=== PATIENT | female | born 1960 | race Caucasian/White ===

== ENCOUNTER 2019-06-11 09:13 | Outpatient (CLI) | payer BC, SELFPAY ==
--- NOTE | ~2019-06-11 | MM_ITS ---
EXAMINATION: MM screening [facility] BI w dennise HISTORY: Screening mammogram TECHNIQUE: Craniocaudal and mediolateral oblique 3-D tomosynthesis images were obtained and synthetic 2-D images were generated. CAD analysis was submitted and interpreted. COMPARISON: 02/21/2018, 05/23/2016, 05/14/2014, 01/05/2013 BREAST PARENCHYMAL COMPOSITION: The breasts are heterogeneously dense, which may obscure small masses . FINDINGS: A stable mass in the outer right breast is considered benign given the lack of interval kimberli nge. There is no evidence of suspicious mass, calcification, or architectural distortion to suggest m alignancy in either breast. There has been no suspicious interval change. IMPRESSION: 1. No mammographic evidence of malignancy. 2. Recommend routine screening mammography in one year. BI-RADS Category 2: Benign finding(s). Reviewed, dictated and finalized at location A. IFIED PESTICIDE APPLICATOR
--- NOTE | ~2019-06-11 | DEXA_ITS ---
Bone Density Report Name: Jessica Crawford Age: 58 Sex: Female Ethnicity: White Date of : 1960 Indication: postmenopausal; Referring Provider: Angel Luis Gaxiola Study: Bone densitometry was performed. Exam Date: June 11, 2019 Accession number: [id number] Bone Density: Region BMD T-score Z-score Classification AP Spine (L1-L4) 1.367 2.9 4.2 Normal Femoral Neck (Left) 0.855 0.1 1.2 Normal Total Hip (Left) 1.096 1.3 2.1 Normal Total Hip Bilateral Avg 1.087 1.2 2.0 Normal Femoral Neck (Right) 0.855 0.1 1.2 Normal Total Hip (Right) 1.076 1.1 1.9 Normal World Health Organization criteria for BMD impression classify patients as: Normal (T-score at or above -1.0), Osteopenia (T-score between -1.0 and -2.5), or Osteoporosis (T-score at or below -2.5). 10-year Fracture Risk: FRAX not reported because: All T-scores for Spine Total, Hip Total, Femoral Neck at or above -1.0 Clinical Information Provided by Patient: Patient maximum height was 62 Menopause Age: 57 Drinks caffeinated beverages Onset of menses at age 12 Number of children 2 Impression: The patient has normal bone mass. Discussion: BONE DENSITY IS ABOVE THE MINIMUM DESIRABLE LEVEL AT ALL SKELETAL SITES TESTED. This patient?s bone mineral density is above the minimum desirable level (T-score -1.0 or better) at all sites measured. The patient should follow a healthful lifestyle (good nutrition with adequate calcium and vitamin D, and appropriate weight-bearing exercise). Follow-Up: Consider repeating this study in 5 years or sooner if there is some new clinical indication. Reported by: [facility] on 06/11/2019 9:53:00 AM. Reviewed, dictated and finalized at location AJesus Manuel DALY
== END 2019-06-11 09:14 | disposition home or self-care (01) ==
LOC: ANHIMG 09:16
PROVIDERS: PCP Family Medicine; Visit Provider Physician Assistant
DX: Z12.31 Encounter for screening mammogram for malignant neoplasm of breast (principal); Z78.0 Asymptomatic menopausal state
CPT/HCPCS: 77063; 77067; 77080

== ENCOUNTER → 2020-03-04 11:26 | Outpatient (CLI) | payer BC, SELFPAY ==
--- NOTE | ~2020-03-04 | US_ITS ---
EXAMINATION: US abdomen limited EXAM DATE: 03/04/2020 11:43 INDICATION: R17 - Unspecified jaundice TECHNIQUE: Multiple grayscale and Doppler images of the abdomen right upper quadrant were obtained (b y a technologist who performed the scan) and subsequently reviewed. There is no prior study for nini whitt. FINDINGS: The pancreatic head and body are normal in appearance. The pancreatic tail is not visualized. Mildl y echogenic liver parenchyma, hepatic steatosis. There is a right liver lobe cyst at the dome measur ing 1.4 cm. There is no evidence of intrahepatic biliary duct dilation. Portal venous flow was seen in the hepatopedal, normal direction and has normal Doppler waveform. No right-sided hydronephrosis . Common bile duct measures 5 mm, which is normal. The gallbladder wall is normal in thickness, with ex pected amount of distention. No sonographic evidence of pericholecystic fluid. There is no cholelit hiases. Technologist performing exam reports patient did not demonstrate sonographic Stone's sign. Please note that this sign is less reliable in patients who have received pain medication. IMPRESSION: 1. Hepatic steatosis. Reviewed, dictated and finalized at location B. E GROUP MANAGER IMPRESSION: 1. Hepatic steatosis.
== END ==
PROVIDERS: Visit Provider Physician Assistant
DX: K76.0 Fatty (change of) liver, not elsewhere classified (principal)
CPT/HCPCS: 76705

== ENCOUNTER 2020-12-27 08:59 | Outpatient (CLI) | payer BC, SELFPAY ==
--- NOTE | ~2020-12-27 | MM_ITS ---
EXAMINATION: MM screening [facility] BI w dennise HISTORY: Screening mammogram TECHNIQUE: Craniocaudal and mediolateral oblique 3-D tomosynthesis images were obtained and synthetic 2-D images were generated. CAD analysis was submitted and interpreted. COMPARISON: 06/11/2019, 02/21/2018, 05/23/2016 bilateral digital screening mammogram examinations BREAST PARENCHYMAL COMPOSITION: The breasts are heterogeneously dense, which may obscure small masses . FINDINGS: Stable circumscribed approximately 9.5 mm mass in the posterior outer mid to upper right br east, not significantly changed since 2018. There is no evidence of suspicious mass, calcification, o r architectural distortion to suggest malignancy in either breast. There has been no suspicious inter nitish change. IMPRESSION: 1. No mammographic evidence of malignancy. 2. Recommend routine screening mammography in one year. BI-RADS Category 2: Benign finding(s). Reviewed, dictated and finalized at location A.
== END 2020-12-27 09:00 | disposition home or self-care (01) ==
LOC: ANHIMG 09:01
PROVIDERS: PCP Family Medicine; Visit Provider Family Medicine
DX: Z12.31 Encounter for screening mammogram for malignant neoplasm of breast (principal)
CPT/HCPCS: 77063; 77067

== ENCOUNTER 2022-05-01 15:35 | Outpatient (CLI) | payer BC, SELFPAY ==
--- NOTE | ~2022-05-01 | MM_ITS ---
EXAMINATION: MM screening [facility] w dennise HISTORY: Screening mammogram TECHNIQUE: Craniocaudal and mediolateral oblique 3-D tomosynthesis images were obtained and synthetic 2-D images were generated. CAD analysis was submitted and interpreted. COMPARISON: 12/27/2020, 06/11/2019, 02/21/2018 bilateral screening mammogram examinations BREAST PARENCHYMAL COMPOSITION: The breasts are heterogeneously dense, which may obscure small masses . FINDINGS: Stable circumscribed approximately 8.5 mm low-density opacity in the posterior mid to lower outer right breast. There is no evidence of suspicious mass, calcification, or architectural distort ion to suggest malignancy in either breast. There has been no suspicious interval change. IMPRESSION: 1. No mammographic evidence of malignancy. 2. Recommend routine screening mammography in one year. BI-RADS Category 2: Benign finding(s). Reviewed, dictated and finalized at location A. CLEANING SUPERVISOR
== END 2022-05-01 15:36 | disposition home or self-care (01) ==
PROVIDERS: PCP Emergency Medicine; Visit Provider Physician Assistant
DX: Z12.31 Encounter for screening mammogram for malignant neoplasm of breast (principal)
CPT/HCPCS: 77063; 77067

== ENCOUNTER 2022-05-28 14:33 | Outpatient (CLI) | payer BC, SELFPAY ==
--- NOTE | ~2022-05-28 | XR_ITS ---
EXAMINATION: HAND-KIKI ARTHRITIS 3+VIEWS DATE: 05/28/2022 14:53 INDICATION: Osteoarthritis at the bilateral hands TECHNIQUE: Posteroanterior, lateral, and oblique views of the left and of the right hands as well as a ballcatchers view of both hands were obtained. COMPARISON: None. FINDINGS: Normal alignment at the bilateral hands and wrists. No fracture. Polyarticular osteoarthritis charact erized by nonuniform joint space narrowing and small marginal osteophytes. This is severe with centra l erosions with gullwing configuration at the right second distal interphalangeal and left third and fifth distal interphalangeal joints consistent with erosive osteoarthritis. Additional osteoarthritis , moderate severity at the right first interphalangeal and remaining distal interphalangeal joints an d mild at the bilateral triscaphe, first carpometacarpal and at the remaining bilateral interphalange al joints. No other erosions to suggest rheumatoid or other inflammatory arthritis. IMPRESSION: 1. 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 Reviewed, dictated and finalized at location A. OUT WORKER IMPRESSION: 1. 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
== END 2022-05-28 14:34 | disposition home or self-care (01) ==
LOC: ANHIMG 14:36
PROVIDERS: PCP Emergency Medicine; Visit Provider Internal Medicine
DX: M19.90 Unspecified osteoarthritis, unspecified site (principal); M35.9 Systemic involvement of connective tissue, unspecified; R13.10 Dysphagia, unspecified; R76.8 Other specified abnormal immunological findings in serum
CPT/HCPCS: 73130

== ENCOUNTER 2023-07-31 08:20 | Outpatient (CLI) | payer BC, SELFPAY ==
--- NOTE | ~2023-07-31 | MM_ITS ---
EXAMINATION: MM screening [facility] BI w dennise HISTORY: Screening mammogram TECHNIQUE: Craniocaudal and mediolateral oblique 3-D tomosynthesis images were obtained and synthetic 2-D images were generated. CAD analysis was submitted and interpreted. COMPARISON: 05/01/2022, 12/27/2020 bilateral screening mammogram examinations BREAST PARENCHYMAL COMPOSITION: The breasts are heterogeneously dense, which may obscure small masses . FINDINGS: There is no evidence of suspicious mass, calcification, or architectural distortion to sugg est malignancy in either breast. There has been no suspicious interval change. IMPRESSION: 1. No mammographic evidence of malignancy. 2. Recommend routine screening mammography in one year. BI-RADS Category 1: Negative Reviewed, dictated and finalized at location A.
== END 2023-07-31 08:21 | disposition home or self-care (01) ==
PROVIDERS: PCP Emergency Medicine; Visit Provider Emergency Medicine
DX: Z12.31 Encounter for screening mammogram for malignant neoplasm of breast (principal)
CPT/HCPCS: 77063; 77067

== ENCOUNTER 2023-09-30 01:09 | Day surgery (SDC) | payer BC, SELFPAY ==
[2023-06-24 14:42] VITALS: BMI 30.1
[2023-09-19 12:11] VITALS: BMI 31.2
[2023-09-30 07:15] VITALS: BP 127/72; PULSE 59; RESP 16; TEMP 36.2; O2SAT 99; BMI 31.3
[2023-09-30] MEDS: LACTATED RINGERS 1,000 ML 150 ML IV CONT (07:33)
--- NOTE | 2023-09-30 07:58 | P.PNAN_ITS ---
Anes - Initial Pre Proc Eval Procedure: Operation Date: 09/30/23 08:30 Proposed Procedures p Screening Colonoscopy - Manjinder Hoff MD Date/Time: 09/30/23 07:58 Surgeon: Manjinder Hoff MD Pre Op Diagnosis: neoplasm screening Patient Data Age: 62 Gender: F Height: 1.57 m Weight: 77.6 kg Last Vital Signs Temp 97.2 F L 09/30/23 07:15 Pulse 59 L 09/30/23 07:15 Resp 16 09/30/23 07:15 BP 127/72 09/30/23 07:15 Pulse Ox 99 09/30/23 07:15 O2 Del Method Room Air 09/30/23 07:15 Allergies Allergy/AdvReac Type Severity Reaction Status Date / Time No Known Allergies Allergy Unknown Verified 09/30/23 07:22 Home Medications Medication Instructions Recorded Confirmed Type valacyclovir 1 gram tablet 1,000 mg PO Q12H #4 tabs 05/07/22 09/30/23 Rx bisoprolol 5 1 tablet PO DAILY #90 tabs 04/08/23 09/30/23 Rx mg-hydrochlorothiazide 6.25 mg tablet lisinopril 20 mg tablet 20 mg PO DAILY #90 tabs 05/21/23 09/30/23 Rx atorvastatin 20 mg tablet See Rx Instructions .Route 08/19/23 09/30/23 Rx .COMPLEX #90 tabs folic acid 1 mg tablet 1 mg PO DAILY 09/17/23 09/30/23 History meloxicam 15 mg tablet See Rx Instructions .Route .COMPLEX 09/17/23 09/30/23 History methotrexate sodium 2.5 mg tablet 12.5 mg PO WEEKLY 09/17/23 09/30/23 History Patient hx anesthesia problems: none Family hx anesthesia problems: none Results Review: All pre-operative results and documents have been reviewed as part of the pre- operative evaluation. 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 Social History Social History Smoking status: Never smoker Alcohol intake: current Drinks per week: 3 Substance use: never Substance use type: does not use Lack of Transportation: No Lack of Food: Sometimes True Current Housing: I Have Housing Concerned About Future Housing: No Difficulty Paying Gas/Electric Bills: No Difficulty Paying for Meds: No Currently Unemployed: No Education: Bachelor's Degree Difficulty w/ Childcare or Family Care: No Living arrangements: with family Spiritual care concerns: No Anes - Eval Final PreProcedure Day of Procedure 09/30/23 07:58 Patient weight: obese Heart: regular rate and rhythm Lungs: clear to auscultation Airway: Mallampati scale class II Neurological: alert and oriented Last oral intake: >/= 8 hours ASA classification: II Emergent: no Anesthetic plan: proceed Anesthesia type and monitoring: general GIVS and standard monitoring Results Review: All pre-operative results and documents have been reviewed as part of the pre- operative evaluation. Informed Consent: The patient's anesthetic plan and its attendant risks and benefits were discussed with the patient/family/POA. Questions were solicited and answers prov ided to the satisfaction of the patient/family/POA.
--- NOTE | 2023-09-30 08:17 | PM.HPGS ---
History of Present Illness History of Present Illness Consent: Risks, benefits, and alternatives have been discussed and questions answered. Patient agrees to proceed with procedure. 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 antibody positive Undifferentiated connective tissue disease Social History Social History Smoking status: Never smoker Alcohol intake: current Drinks per week: 3 Substance use: never Substance use type: does not use Lack of Transportation: No Lack of Food: Sometimes True Current Housing: I Have Housing Concerned About Future Housing: No Difficulty Paying Gas/Electric Bills: No Difficulty Paying for Meds: No Currently Unemployed: No Education: Bachelor's Degree Difficulty w/ Childcare or Family Care: No Living arrangements: with family Spiritual care concerns: No Meds Home Medications and Allergies Home Medications Medication Instructions Recorded Confirmed Type valacyclovir 1 gram tablet 1,000 mg PO Q12H #4 tabs 05/07/22 09/30/23 Rx bisoprolol 5 1 tablet PO DAILY #90 tabs 04/08/23 09/30/23 Rx mg-hydrochlorothiazide 6.25 mg tablet lisinopril 20 mg tablet 20 mg PO DAILY #90 tabs 05/21/23 09/30/23 Rx atorvastatin 20 mg tablet See Rx Instructions .Route 08/19/23 09/30/23 Rx .COMPLEX #90 tabs folic acid 1 mg tablet 1 mg PO DAILY 09/17/23 09/30/23 History meloxicam 15 mg tablet See Rx Instructions .Route .COMPLEX 09/17/23 09/30/23 History methotrexate sodium 2.5 mg tablet 12.5 mg PO WEEKLY 09/17/23 09/30/23 History Allergies Allergy/AdvReac Type Severity Reaction Status Date / Time No Known Allergies Allergy Unknown Verified 09/30/23 07:22 Vital Signs Vital Signs - 24 hr 09/30/23 07:15 Temperature 97.2 F L Pulse Rate 59 L Respiratory Rate 16 Blood Pressure 127/72 Pulse Oximetry 99 Oxygen Delivery Room Air Exam Const: General: comfortable and no acute distress HENMT: Face/Nose/Sinus: Normal nares present Eyes: General: appearance normal, both eyes and all related structures Neck: Neck: no JVD Resp: Auscultation: clear to auscultation bilaterally Cardio: Rate: regular rate Rhythm: regular rhythm GI: Inspection: non-distended GI Palp: Yes Soft to palpation Skin: General skin exam: normal color Neuro: General: gait normal Speech: normal speech Extrem: General: normal to inspection Psych: Mental Status: mental status grossly normal Assessment and Plan Assessment and plan (1) Colon cancer screening: Code(s): Z12.11 - Encounter for screening for malignant neoplasm of colon Status: Acute Assessment and Plan: colonoscopy
[2023-09-30 08:39] VITALS: BP 95/58; PULSE 58; RESP 17; O2SAT 97
[2023-09-30 08:49] VITALS: BP 104/64; PULSE 55; RESP 16; O2SAT 100
[2023-09-30 08:59] VITALS: BP 113/66; PULSE 56; RESP 18; O2SAT 100
== END 2023-09-30 09:05 | disposition home or self-care (01) ==
PROVIDERS: PCP Emergency Medicine; Visit Provider Internal Medicine Gastroenterology
PROC: 0DJD8ZZ Inspection of Lower Intestinal Tract, Via Natural or Artificial Opening Endoscopic (ICD-10-PCS; CPT 45378; principal; 2023-09-30 08:30)
DX: Z12.11 Encounter for screening for malignant neoplasm of colon (principal); K57.30 Diverticulosis of large intestine without perforation or abscess without bleeding; K64.8 Other hemorrhoids; E66.9 Obesity, unspecified; Z68.31 Body mass index [BMI] 31.0-31.9, adult
CPT/HCPCS: 45378; J2704; J7120

== ENCOUNTER 2024-08-18 10:18 | Outpatient (CLI) | payer BC, SELFPAY ==
--- NOTE | ~2024-08-18 | MM_ITS ---
EXAMINATION: MM screening lauren BI w dennise HISTORY: Screening mammogram TECHNIQUE: Craniocaudal and mediolateral oblique 3-D tomosynthesis images were obtained and synthetic 2-D images were generated. CAD analysis was submitted and interpreted. COMPARISON: 07/31/2023, 05/01/2022, 12/27/2020 BREAST PARENCHYMAL COMPOSITION:Dense: The breasts are heterogeneously dense, which may obscure small masses. FINDINGS: No suspicious mass, calcification, or architectural distortion are identified in either guillermo ast to suggest malignancy. There has been no suspicious interval change. IMPRESSION: No mammographic evidence of malignancy. Recommend routine screening mammography in one year. BI-RADS Category 1: Negative Reviewed, dictated and finalized at location .
--- OUTSIDE RECORDS SUMMARY | 2024-08-18 11:29 | XMS_ITS | Encounter Summary ---
Author Organization [facility] Healthcare Address [address] [place] [address] Care Team Providers Care Creative Services Manager Name Role Phone Brittny Khan NP Primary Care Provider [phone] Reason for Visit * Cardiology (Routine) - Closed Specialty Diagnoses / Procedures Referred By Contac t Referred To Contact Diagnoses Atrial fibrillation, unspecified type (HCC) Procedures Transthoracic Echo (TTE) Complete W Doppler/CF Elsa Hall MD [address] [address] Phone: tel: fax: [facility] [address] [place] [phone] Phone: tel: fax: Referral ID Status Reason Start Date Expiration Date Visits Re quested Visits Authorized [id number] Closed 08/11/2024 10/09/2024 1 1 Encounter Details Date Type Department Care Team (Latest Contact Info) Description 08/17/2024 8:15 AM CDT Ancillary Procedure [facility] [address] [place] [phone] Atrial fibrillation, unspecified type (HCC) Social History Tobacco Use Types Packs/Day Years Used Date Smoking Tobacco: Never Comments Unknown Sex and Gender Information Value Date Recorded Sex Assigned at Not on file Legal Sex Female 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 Gender Identity Female 07/06/2024 9:06 AM CDT Sexual Orientation Not on file documented as of this encounter Plan of Treatment Not on file documented as of this encounter Procedures Procedure Name Priority Date/Time Associated Diagnosis Comments TRANSTHORACIC ECHO (TTE) COMPLETE W DOPPLER/CF WO CONTRAST Routine 08/17/2024 8:47 AM CDT Atrial fibrillation, unspecified type (HCC) documented in this encounter Results * TRANSTHORACIC ECHO (TTE) COMPLETE W DOPPLER/CF WO CONTRAST (08/17/2024 8:47 AM CDT) LV EF 35 % CONS SCIMAGE Anatomical Region Laterality Modality Ultrasound 08/17/2024 8:28 AM CDT Narrative 08/17/2024 9:27 AM CDT [facility] [address], [address], [place] [address] P:[phone] P:[phone] Echocardiographic Report Patient Name: JESSICA ESCALANTE : 1960 Study Date: 08/17/2024 8:28:41 AM Gender: F Tech: Location: ID Ref Provider: ELSA HALL Height(Cm): 157 BSA: 1.87 Weight(Kg): 79.8 Heart Rate: 126 BP: 112 / 80 Quality: Good Order Provider: ELSA HALL PROCEDURES: Echocardiographic Report: Transthoracic echocardiogram with complete 2D, M-Mode, and color Doppler examination. With Strain Analysis. INDICATIONS: Atrial Fibrillation. MEASUREMENTS: 2D/MM Value Range Doppler Value Range EF Mod BP 43 % [ 54 - 74 ] AV Mean PG 3 mmHg Estimated EF 35 % AV Peak Brian 1.14 m/s [ 1.00 - 1.70 ] LVIDd 2D 5.13 cm [ 3.80 - 5.20 ] AV Peak PG 5 mmHg LVIDd MM 4.38 cm [ 3.80 - 5.20 ] AV VTI 19.98 cm LVIDs 2D 3.43 cm [ 2.20 - 3.50 ] LVOT Peak Brian 0.76 m/s [ 0.70 - 1.10 ] LVIDs MM 3.11 cm [ 2.20 - 3.50 ] LVOT VTI 15.92 cm LVPWd MM 1.04 cm [ 0.60 - 0.90 ] MV E Peak Brian 1.11 m/s [ 0.60 - 1.30 ] IVSd 2D 0.70 cm [ 0.60 - 0.90 ] MV Decel Time 165 msec [ 104 - 258 ] IVSd MM 1.04 cm [ 0.60 - 0.90 ] PV Peak Brian 0.66 m/s [ 0.40 - 0.80 ] LA Dimension MM 3.66 cm [ 2.70 - 3.80 ] TR Peak Brian 2.62 m/s [ 1.00 - 2.80 ] AoR Diam MM 3.52 cm [ 2.70 - 3.70 ] TR Peak PG 27 mmHg LA Volume Index 54 cc/m2 [ 16 - 34 ] RVSP 35.00 mmHg [ 10.00 - 36.00 ] ACS MM 1.87 cm Lateral E` 0.11 m/s [ 0.10 - 0.15 ] E` 0.08 m/s E/E` 10 2D/MM Value Range Doppler Value Range - FINDINGS: Interpretation Site: Exam was interpreted at [facility]. Left Ventricle: Normal left ventricular size. Normal left ventricular wall thickness. Moderate global left ventricular systolic dysfunction. Diastolic dysfunction is present. Ejection fraction is measured at 43 %. Ejection Fraction is visually estimated to be 35 %. Global Longitudinal Strain is -10 %. Right Ventricle: Normal right ventricular size. Normal right ventricular systolic function. Left Atrium: There is moderate enlargement of left atrium. Right Atrium: There is mild enlargement of right atrium. Atrial Septum: Normal atrial septum. Mitral Valve: Normal appearance of the mitral valve. Mild mitral valve regurgitation. There is no hemodynamically significant mitral stenosis by Doppler. Aortic Valve: No evidence of hemodynamically significant aortic stenosis by Doppler. Aortic cusps appear mildly sclerotic. Trileaflet aortic valve. Mild aortic valve regurgitation. Tricuspid Valve: Normal appearance of the tricuspid valve. Estimated peak RVSP is 35 mmHg. Mild tricuspid regurgitation. Pulmonic Valve: Normal appearance of the pulmonic valve. Mild pulmonic regurgitation. Pericardium: Normal pericardium with no significant pericardial effusion. Aorta: Sinus of Valsalva is mildly dilated. Sinus of Valsalva 3.9 cm. IVC: Normal size and normal respiratory collapse consistent with normal right atrial pressure (<5 mmHg). Pulmonary Artery: Normal pulmonary artery size. CONCLUSIONS: Normal left ventricular size. Normal left ventricular wall thickness. Moderate global left ventricular systolic dysfunction. Diastolic dysfunction is present. Ejection fraction is measured at 43 %. Ejection Fraction is visually estimated to be 35 %. Global Longitudinal Strain is -10 %. There is moderate enlargement of left atrium. There is mild enlargement of right atrium. No evidence of hemodynamically significant aortic stenosis by Doppler. Aortic cusps appear mildly sclerotic. Trileaflet aortic valve. Mild aortic valve regurgitation. Estimated peak RVSP is 35 mmHg. Mild tricuspid regurgitation. Mild pulmonic regurgitation. Atrial fibrillation. Electronically Signed By: Dr. Caleb Hill [facility] 08/17/2024 9:26:47 AM CDT Procedure Note Caleb Hill MD - 08/17/2024 [facility] [address] [address], [address], [place] [address] P:[phone] P:[phone] Echocardiographic Report Patient Name: JESSICA ESCALANTE : 1960 Study Date: 08/17/2024 8:28:41 AM Gender: F Tech: Location: [facility] Provider: ELSA HALL Height(Cm): 157 BSA: 1.87 Weight(Kg): 79.8 Heart Rate: 126 BP: 112 / 80 Quality: Good Order Provider: ELSA HALL PROCEDURES: Echocardiographic Report: Transthoracic echocardiogram with complete 2D, M-Mode, and color Dopplerexamination. With Strain Analysis. INDICATIONS: Atrial Fibrillation. MEASUREMENTS: 2D/MM Value Range Doppler ValueRange EF Mod BP 43 % [ 54 - 74 ] AV Mean PG 3mmHg Estimated EF 35 % AV Peak Brian 1.14m/s [ 1.00 - 1.70 ] LVIDd 2D 5.13 cm [ 3.80 - 5.20 ] AV Peak PG 5mmHg LVIDd MM 4.38 cm [ 3.80 - 5.20 ] AV VTI 19.98cm LVIDs 2D 3.43 cm [ 2.20 - 3.50 ] LVOT Peak Brian 0.76m/s [ 0.70 - 1.10 ] LVIDs MM 3.11 cm [ 2.20 - 3.50 ] LVOT VTI 15.92cm LVPWd MM 1.04 cm [ 0.60 - 0.90 ] MV E Peak Brian 1.11m/s [ 0.60 - 1.30 ] IVSd 2D 0.70 cm [ 0.60 - 0.90 ] MV Decel Time 165msec [ 104 - 258 ] IVSd MM 1.04 cm [ 0.60 - 0.90 ] PV Peak Brian 0.66m/s [ 0.40 - 0.80 ] LA Dimension MM 3.66 cm [ 2.70 - 3.80 ] TR Peak Brian 2.62m/s [ 1.00 - 2.80 ] AoR Diam MM 3.52 cm [ 2.70 - 3.70 ] TR Peak PG 27mmHg LA Volume Index 54 cc/m2 [ 16 - 34 ] RVSP 35.00mmHg [ 10.00 - 36.00 ] ACS MM 1.87 cm Lateral E` 0.11m/s [ 0.10 - 0.15 ] E` 0.08 m/s E/E` 10 2D/MM Value Range Doppler ValueRange - FINDINGS: Interpretation Site: Exam was interpreted at [facility]. Left Ventricle: Normal left ventricular size. Normal left ventricular wall thickness.Moderate global left ventricular systolic dysfunction. Diastolic dysfunction is present.Ejection fraction is measured at 43 %. Ejection Fraction is visually estimated staci 35 %. Global Longitudinal Strain is -10 %. Right Ventricle: Normal right ventricular size. Normal right ventricular systolicfunction. Left Atrium: There is moderate enlargement of left atrium. Right Atrium: There is mild enlargement of right atrium. Atrial Septum: Normal atrial septum. Mitral Valve: Normal appearance of the mitral valve. Mild mitral valve regurgitation.There is no hemodynamically significant mitral stenosis by Doppler. Aortic Valve: No evidence of hemodynamically significant aortic stenosis by Doppler.Aortic cusps appear mildly sclerotic. Trileaflet aortic valve. Mild aortic valveregurgitation. Tricuspid Valve: Normal appearance of the tricuspid valve. Estimated peak RVSP is 35 mmHg.Mild tricuspid regurgitation. Pulmonic Valve: Normal appearance of the pulmonic valve. Mild pulmonic regurgitation. Pericardium: Normal pericardium with no significant pericardial effusion. Aorta: Sinus of Valsalva is mildly dilated. Sinus of Valsalva 3.9 cm. IVC: Normal size and normal respiratory collapse consistent with normal rightatrial pressure (<5 mmHg). Pulmonary Artery: Normal pulmonary artery size. CONCLUSIONS: Normal left ventricular size. Normal left ventricular wall thickness.Moderate global left ventricular systolic dysfunction. Diastolic dysfunction is present.Ejection fraction is measured at 43 %. Ejection Fraction is visually estimated staci 35 %. Global Longitudinal Strain is -10 %. There is moderate enlargement of left atrium. There is mild enlargement of right atrium. No evidence of hemodynamically significant aortic stenosis by Doppler.Aortic cusps appear mildly sclerotic. Trileaflet aortic valve. Mild aortic valveregurgitation. Estimated peak RVSP is 35 mmHg. Mild tricuspid regurgitation. Mild pulmonic regurgitation. Atrial fibrillation. Electronically Signed By: Dr. Caleb Hill [facility] 08/17/2024 9:26:47 AM CDT [facility] Gonzalo Hall MD CV ECHO PROCEDURES Ronda l Result documented in this encounter Visit Diagnoses Diagnosis Atrial fibrillation, unspecified type (HCC) documented in this encounter Care Teams Creative Services Manager Relationship Specialty Start Date End Date Winter, Brittny Rodríguez NP [address] [facility] [address] [place] [address] PCP - General Nurse Practitioner 07/13/24 documented as of this encounter
--- OUTSIDE RECORDS SUMMARY | 2024-08-18 11:29 | XMS_ITS | Encounter Summary ---
Author Organization [facility] Healthcare Address [address] [place] [address] Care Team Providers Care Marketing Team Lead Name Role Phone Brittny Khan NP Primary Care Provider [phone] Encounter Details Date Type Department Care Team (Latest Contact Info) Description 07/29/2024 Results Follow-Up [facility] Cardiology at [address] [place] [address] Valeriano Hall MD [address] [place] [phone] Longstanding persistent atrial fibrillation (HCC) (Primary Dx); Atrial fibrillation, unspecified type (HCC) Social History Tobacco Use Types Packs/Day Years Used Date Smoking Tobacco: Never Comments Unknown Sex and Gender Information Value Date Recorded Sex Assigned at Not on file Legal Sex Female 2:40 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 Gender Identity Female 07/06/2024 9:06 AM CDT Sexual Orientation Not on file documented as of this encounter Ordered Prescriptions Prescription Sig Dispense Quantity Refills Last Filled Start Date End Date metoprolol XL (TOPROL-XL) 100 mg 24 hr tabletIndications: Atrial fibrillation, unspecified type (HCC) Take 1 tablet (100 mg total) by mouth daily 30 tablet 11 07/30/2024 07/30/2025 documented in this encounter Miscellaneous Notes * Addendum Note - Rina Biggs, RN - 07/30/2024 8:50 AM CDTAddended by: RINA BIGGS on: 07/30/2024 08:50 AM Modules accepted: Orders * Telephone Encounter - Rina Biggs RN - 07/30/2024 8:47 AM CDT Spoke with pt. Result note reviewed. Pt states she would prefer to try no HCTZ for now, but will monitor home BP. Advised pt to call back if her home measurements are higher than 130/80 on a consistent basis. Pt verbalizes understanding. Order for Toprol 100 mg placed to pt preferred pharmacy. Pt ve rbalizes understanding of d/c bisoprolol/HCTZ. * Result Encounter Note - Rina Biggs RN - 07/30/2024 8:38 AM CDT LM on requesting callback to discuss med changes * Result Encounter Note - Rina Biggs RN - 07/29/2024 2:20 PM CDT LM on requesting callback regarding result note * Telephone Encounter - Rina Biggs RN - 07/29/2024 11:08 AM CDT ----- Message from Valeriano Hall MD sent at 07/29/2024 11:06 AM CDT ----- Please let Jessica know that her heart monitor shows atrial fibrillation 100% of the time. Her average heart rate was 98 beats per minute. Her symptoms while wearing the monitor correlated to AFIB withan elevated heart rate. I would like to get her heart rate under a little more control. She is currently on Bisoprolol, so would like to switch that to Toprol 100mg once daily. Since she is on the combo pill of Bisoprolol-HCTZ, will need a separate script for the HCTZ. documented in this encounter Plan of Treatment Not on file documented as of this encounter Visit Diagnoses Diagnosis Longstanding persistent atrial fibrillation (HCC)- Primary Atrial fibrillation, unspecified type (HCC) documented in this encounter Discontinued Medications Medication Sig Discontinue Reason Start Date End Da te bisoprolol-hydroCHLOROth iazide (ZIAC) 5-6.25 mg per tablet Take 1 tablet by mouth daily Alternate therapy 07/30/2024 documented as of this encounter Care Teams Marketing Team Lead Relationship Specialty Start Date End Date Brittny Khan NP [address] [place], [place] [id number] PCP - General Nurse Practitioner 07/13/24 documented as of this encounter
--- OUTSIDE RECORDS SUMMARY | 2024-08-18 11:29 | XMS_ITS | Clinical Summary ---
Author Organization [facility] Address [address] [facility] [place] [address] Care Team Providers Care County Agricultural Agent Name Role Phone Gladys Nash MD Primary Care Provider [phone] Source Comments [facility],non-owned Affiliates and Associated Physician Practices is amultiple site organization consisting of ambulatory clinics and hospital sitesin [place], [place], [place] and [place]. This disclosure is being madepursuant to the Care Everywhere program and may not contain all information available regarding this patient. Last updated 18.[facility] Allergies No known active allergies Medications * Be aware that medications may not be up to date on this document. Alwaysverify current medications with the patient. bisoprolol - hydroCHLOROthiazide (ZIAC) 5-6.25 MG tablet Take 1 tablet by mouth once daily Active lisinopril (PRINIVIL; ZESTRIL) 20 MG tablet Take 20 mg by mouth once daily Active meloxicam (MOBIC) 15 MG tablet Take 15 mg by mouth once daily Active fluticasone propionate (FLONASE) 50 MCG/ACT nasal sprayIndications:Acute maxillary sinusitis, recurrence not specified,Cough [place] 2 sprays into each nostril once daily 1 bottles 07/03/19 Active benzonatate (TESSALON) 200 MG capsuleIndications:Coug h Take 1 capsule by mouth 3 times daily as needed for Cough 30 capsule 07/03/19 18 Active Family History Medical History Relation Name Comments Hypertension Father Relation Name Status Comments Father Alive Mother Alive Social History Tobacco Use Types Packs/Day Years Used Date Smoking Tobacco: Never Smokeless Tobacco: Never Comments No Sex and Gender Information Value Date Recorded Sex Assigned at Not on file Legal Sex Female 1:28 PM CDT Gender Identity Not on file Sexual Orientation Not on file Last Filed Vital Signs Vital Sign Reading Time Taken Comments Blood Pressure 120/70 07/02/2017 3:09 PM CDT Pulse 65 07/02/2017 3:09 PM CDT Temperature 36.8 C (98.3 F) 07/02/2017 3:09 PM CDT Respiratory Rate 16 07/02/2017 3:09 PM CDT Oxygen Saturation 98% 07/02/2017 3:09 PM CDT Inhaled Oxygen Concentration - - Weight 77.1 kg (170 lb) 07/02/2017 3:09 PM CDT Height 157.5 cm (5' 2 ) 07/02/2017 3:09 PM CDT Body Mass Index 31.09 07/02/2017 3:09 PM CDT Plan of Treatment Health Maintenance Due Date Last Done Comments COLOGUARD (AGES 45-75) - COL ON CA SCREENING 1960 COLON MONITORING 1960 COLONOSCOPY - COLON CA SCREENING 1960 CT COLONOGRAPHY - COLON CA SCREENING 1960 Colorectal Cancer Screening 1960 FIT - COLON CA SCREENING 1960 FLEX SIG - COLON CA SCREENING 1960 LIPID TESTING 1960 MAMMOGRAM 1960 PAP SMEAR 1960 HIV SCREENING 1976 HEPATITIS C SCREENING 12/02/1979 DTAP/TDAP/TD VACCINES (1 - Tdap) 1980 PNEUMOCOCCAL VACCINE 50+ (1 of 1 - PCV) 12/07/2011 ZOSTER VACCINE (1 of 2) 12/07/2011 SCREENING FOR DIABETES 07/02/2017 COVID-19 VACCINE ( - 2023-2 5 season) 2023 DEPRESSION SCREENING 04/22/2024 INFLUENZA VACCINE (Season Ended) 2024 Respiratory Syncytial Virus (RSV) Vaccine Pt: or over 60 yrs (1 - 1-dose 75+ series) 2036 HEPATITIS B VACCINE Aged Out No longe r eligible based on patient's age to complete this topic HIB VACCINE Aged Out No longer eligi ble based on patient's age to complete this topic HPV VACCINE Aged Out No longer eligi ble based on patient's age to complete this topic MENINGOCOCCAL (Group B) VACC INE SHARED DECISION-MAKING Aged Out No longer eligibl e based on patient's age to complete this topic MENINGOCOCCAL GROUPS A/C/Y/W VACCINE Aged Out No longer eligible b ased on patient's age to complete [place] [address] [facility] Care Teams County Agricultural Agent Relationship Specialty Start Date End Date Gladys Nash MD [address] [place] [id number] PCP - General Family Medicine 07/02/17
--- OUTSIDE RECORDS SUMMARY | 2024-08-18 11:29 | XMS_ITS | Referral Summary ---
Author Organization [address] Address [address] [facility] [address] [place] [address] Care Team Providers Care Core Analyst Name Role Phone Brittny Khan NP Primary Care Provider [phone] Encounters Date Type Department Care Team Description 08/17/2024 8:15 AM CDT Ancillary Procedure [facility] Medical [facility] Cardiology [address] [place] [address] [address] [place] [phone] Atrial fibrillation, unspecified type (HCC) 08/10/2024 Telephone [facility] Cardiology [address] [place] [address] [place] [phone] Elsa Hall MD 07/31/2024 Telephone [facility] Cardiology [address] [place] [address] [address] [place] [phone] Elsa Hall MD 07/29/2024 Results Follow-Up [facility] Medical Group Cardiology at [address] [place] [phone] Elsa Hall MD Longstanding persistent atrial fibrillation (HCC) (Primary Dx); Atrial fibrillation, unspecified type (HCC) 07/14/2024 Telephone [facility] Cardiology [address] [place] [address] [address] [place] [phone] Elsa Hall MD 07/13/2024 Telephone [facility] Cardiology [address] [facility] [address] [place] [phone] Elsa Hall MD serious ECG 07/13/2024 9:45 AM CDT Ancillary Procedure [facility] Cardiology [address] [place] [phone] Atrial fibrillation, unspecified type (HCC) 07/13/2024 9:15 AM CDT Office Visit [facility] Cardiology [address] [place] [phone] Elsa Hall MD Atrial fibrillation, unspecified type (HCC) (Primary Dx); Primary hypertension; Mixed hyperlipidemia from Last 3 Months Allergies No known active allergies Medications atorvastatin (LIPITOR) 10 mg tablet Take 1 tablet (10 mg total) by mouth daily Active Pradaxa 150 mg capsule Take 1 capsule (150 mg total) by mouth 2 (two) times a day 5 Active folic acid 0.8 mg capsule Take 0.8 mg by mouth daily 4 Active lisinopriL (PRINIVIL,ZESTRI L) 20 mg tablet Take 1 tablet (20 mg total) by mouth daily Active metoprolol XL (TOPROL-XL) 100 mg 24 hr tabletIndication s:Atrial fibrillation, unspecified type (HCC) Take 1 tablet (100 mg total) by mouth daily 30 tablet 11 5 07/31/19 26 Active bisoprolol-hydro CHLOROthiazide (ZIAC) 5-6.25 mg per tablet Take 1 tablet by mouth daily 07/31/19 25 Discontinu ed(Alterna te therapy) Active Problems Problem Noted Date Diagnosed Date Atrial fibrillation 07/13/2024 Social History Tobacco Use Types Packs/Day Years Used Date Smoking Tobacco: Never Tobacco Cessation:Counseling Given: Not Answered Comments Unknown Sex and Gender Information Value Date Recorded Sex Assigned at Not on file 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 Gender Identity Female 07/06/2024 9:06 AM CDT Sexual Orientation Not on file Last Filed Vital Signs Vital Sign Reading Time Taken Comments Blood Pressure 112/80 07/13/2024 9:18 AM CDT Pulse 73 07/13/2024 9:18 AM CDT Temperature - - Respiratory Rate 14 07/13/2024 9:18 AM CDT Oxygen Saturation 98% 07/13/2024 9:18 AM CDT Inhaled Oxygen Concentration - - Weight 79.8 kg (176 lb) 07/13/2024 9:18 AM CDT Height 157.5 cm (5' 2 ) 07/13/2024 9:18 AM CDT Body Mass Index 32.19 07/13/2024 9:18 AM CDT Plan of Treatment Not on file Procedures Procedure Name Priority Date/Time Associated Diagnosis Comments TRANSTHORACIC ECHO (TTE) COMPLETE W DOPPLER/CF WO CONTRAST Routine 08/17/2024 8:47 AM CDT Atrial fibrillation, unspecified type (HCC) ELECTROCARDIOGRAM REPORT Routine 025 2:07 PM CDT Atrial fibrillation, unspecified type (HCC) Primary hypertension MCT - MOBILE CARDIAC TELEMETRY EVENT MONITOR Routine 07/13/2024 9:45 AM CDT Atrial fibrillation, unspecified type (HCC) LIPID PANEL Routine 07/13/2024 9:32 AM CDT from Last 3 Months Results * TRANSTHORACIC ECHO (TTE) COMPLETE W DOPPLER/CF WO CONTRAST (08/17/2024 8:47 AM CDT) LV EF 35 % CONS SCIMAGE Anatomical Region Laterality Modality Ultrasound 08/17/2024 8:28 AM CDT Narrative 08/17/2024 9:27 AM CDT [facility] Medical Group Cardiology [address], [place] [address] P:[phone] P:[phone] Echocardiographic Report Patient Name: JESSICA ESCALANTE : 1960 Study Date: 08/17/2024 8:28:41 AM Gender: F Tech: Location: [place] Ref Provider: ELSA HALL Height(Cm): 157 BSA: [...] FINDINGS: Interpretation Site: Exam was interpreted at [facility]. Left Ventricle: Normal left ventricular size. Normal [...] fibrillation. Electronically Signed By: Dr. Caleb Hill [facility] 08/17/2024 9:26:47 AM CDT Procedure Note Caleb Hill MD - 08/17/2024 [facility] Medical Group Cardiology [address] [facility], [address], [place] [address] P:[phone] P:[phone] Echocardiographic Report Patient Name: JESSICA ESCALANTE : 1960 Study Date: 08/17/2024 8:28:41 AM Gender: F Tech: Location: [facility] Provider: ELSA HALL Height(Cm): 157 BSA: 1.87 [...] FINDINGS: Interpretation Site: Exam was interpreted at [facility]. Left Ventricle: Normal left ventricular size. Normal [...] fibrillation. Electronically Signed By: Dr. Caleb Hill [facility] 08/17/2024 9:26:47 AM CDT Result Chelsea Hall MD CV ECHO PROCEDURES Ronda l Result * Electrocardiogram Report (07/13/2024 2:07 PM CDT) us Elsa Hall MD ECG ORDERABLES Final R esult * MCT Mobile Cardiac Telemetry Event Monitor (07/13/2024 9:45 AM CDT) Anatomical Region Laterality Modality Electrocardiogra phy Narrative 07/24/2024 12:40 PM CDT AMBULATORY GOLD MARKER REPORT Patient Name: Jessica Escalante Date of : 1960 Requesting Physician: Dr Hall Date of interpretation: 07/24/24 Type of monitor : 7 day event monitor Date of the study/Enrollment period: July 13 till July 19, 2024 Indication: Atrial fibrillation Quality of the study: Good Interpretation: Average heart rate was 98 beats per minute with a minimum heart rate 72 beats per minute and maximum heart rate 173 beats per minute. Baseline rhythm was atrial fibrillation. No significant pauses above 3 seconds. [place] of PVCs less than 1%. No evidence of ventricular tachycardia. Patient reported symptoms on 3 occasions. On 1 occasion complained of shortness of breath and corresponded to AFib at heart rate 99 beats per minute and the other episode complained of skipped beats or fluttering sensation and corresponded to AFib with heart rate 160 beats per minute. Third episode was an accidental push. Conclusions: AFib with elevated average heart rate. Voice recognition software was used to complete this document, therefore, manager business continuity variances may occur. Caleb Hill MD, [facility] 07/24/24 Procedure Note Caleb Hill MD - 07/24/2024 AMBULATORY GOLD MARKER REPORT Patient Name: Jessica Escalante Date of : 1960 Requesting Physician: Dr Hall Date of interpretation: 07/24/24 Type of monitor : 7 day event monitor Date of the study/Enrollment period: July 13 till July 19, 2024 Indication: Atrial fibrillation Quality of the study: Good Interpretation: Average heart rate was 98 beats per minute with a minimum heart rate 72beats per minute and maximum heart rate 173 beats per minute. Baselinerhythm was atrial fibrillation. No significant pauses above 3 seconds.[place] of PVCs less than 1%. No evidence of ventricular tachycardia.Patient reported symptoms on 3 occasions. On 1 occasion complained ofshortness of breath and corresponded to AFib at heart rate 99 beats perminute and the other episode complained of skipped beats or flutteringsensation and corresponded to AFib with heart rate 160 beats per minute.Third episode was an accidental push. Conclusions: AFib with elevated average heart rate. Voice recognition software was used to complete this document, therefore,manager business continuity variances may occur. Caleb Hill MD, [facility] 07/24/24 [facility] Gonzalo Hall MD CV CARDIAC SERVICES PRO CEDURES Final Result * (ABNORMAL) Lipid panel (07/13/2024 9:32 AM CDT) SCRIBED Cholesterol, Total 117 0 - 200 EXTERNAL LAB SCRIBED HDL 43 40 - 120 EXTERNAL LAB SCRIBED LDL 50 0 - 100 EXTERNAL LAB SCRIBED Triglycerides 159(A) 0 - 100 EXTERNAL LAB Blood Historical Provider LAB BLOOD ORDERABLES Ronda askew Result EXTERNAL LAB from Last 3 Months Insurance [employer]F PPO [place] Care Teams Core Analyst Relationship Specialty Start Date End Date Brittny Khan NP [address] [place] [address] PCP - General Nurse Practitioner 07/13/24
--- OUTSIDE RECORDS SUMMARY | 2024-08-18 11:29 | XMS_ITS | Clinical Summary ---
Author Organization [address] Address [address] [place] [address] [address] [place] [address] Care Team Providers Care Pharmacist In Charge Owner Name Role Phone Brittny Khan NP Primary Care Provider [phone] Allergies No known active allergies Medications atorvastatin [...] Noted Date Diagnosed Date Atrial fibrillation 07/13/2024 Encounters Date Type Department Care Team Description 08/17/2024 8:15 AM CDT Ancillary Procedure [facility] Medical Group Cardiology [address] [place] [phone] Atrial fibrillation, unspecified type (HCC) 08/10/2024 Telephone [facility] Cardiology [address] [place] [phone] Elsa Hall MD 07/31/2024 Telephone [facility] Cardiology [address] [place] [phone] Elsa Hall MD 07/29/2024 Results Follow-Up [facility] Cardiology at [address] [place] [phone] Elsa Hall MD Longstanding persistent atrial fibrillation (HCC) (Primary Dx); Atrial fibrillation, unspecified type (HCC) 07/14/2024 Telephone [facility] Cardiology [address] [place] [phone] Elsa Hall MD 07/13/2024 9:45 AM CDT Ancillary Procedure [facility] Cardiology [address] [place] [address] [place] [phone] Atrial fibrillation, unspecified type (HCC) 07/13/2024 9:15 AM CDT Office Visit [facility] Cardiology [address] [place] [address] [place] [phone] Elsa Hall MD Atrial fibrillation, unspecified type (HCC) (Primary Dx); Primary hypertension; Mixed hyperlipidemia 07/13/2024 Telephone [facility] Cardiology [address] [facility] [address] [place] [phone] Elsa Hall MD serious ECG from Last 3 Months Social History Tobacco Use Types Packs/Day Years Used Date Smoking Tobacco: Never Tobacco Cessation:Counseling Given: Not Answered Comments Unknown Sex and Gender Information Value Date Recorded Sex Assigned at Not on file 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 Gender Identity Female 07/06/2024 9:06 AM CDT Sexual Orientation Not on file Obstetrics History Last Filed Vital Signs Vital Sign Reading [...] 07/13/2024 9:18 AM CDT Plan of Treatment Health Maintenance Due Date Last Done Comments Breast Cancer Screening-Mammogram 1960 Cervical Cancer Screening 1960 Colon Cancer Screening-Colonoscopy 1960 Depression Screening 1960 Hepatitis C Screening 1960 DTaP/Tdap/Td Vaccine (1 - Tdap) 1972 Hepatitis B Screening 12/07/1979 Regular Well Visit/Exam 18-64 12/07/1979 Zoster Vaccine Completed 04/24/2020, 01/18/2020 Covid-19 Vaccine Completed 01/03/2024, , 01/02/2022, Additional history exists Influenza Vaccine Completed 01/03/2024, , 01/01/2022, Additional history exists Pneumococcal vaccine <65 Aged Out No longer eligible based on patient's age to complete this topic Procedures Procedure Name Priority Date/Time Associated Diagnosis [...] AM CDT Narrative 08/17/2024 9:27 AM CDT [facility] Medical [facility] Cardiology [address], [address], [place] [address] [phone] P:[phone] Echocardiographic Report Patient Name: JESSICA ESCALANTE : 1960 Study Date: 08/17/2024 8:28:41 AM Gender: F Tech: Location: [facility] [place] [facility] Provider: ELSA HALL Height(Cm): 157 BSA: [...] FINDINGS: Interpretation Site: Exam was interpreted at [facility]. Left Ventricle: Normal left ventricular [...] fibrillation. Electronically Signed By: Dr. Caleb Hill [facility] 08/17/2024 9:26:47 AM CDT Procedure Note Caleb Hill MD - 08/17/2024 [facility] Cardiology [address] [facility], [address], [place] [address] [phone] P:[phone] Echocardiographic Report Patient Name: JESSICA ESCALANTE : 1960 Study Date: 08/17/2024 8:28:41 AM Gender: F Tech: Location: [facility] [place] [facility] Provider: ELSA HALL Height(Cm): 157 BSA: [...] FINDINGS: Interpretation Site: Exam was interpreted at [facility]. Left Ventricle: Normal left ventricular [...] fibrillation. Electronically Signed By: Dr. Caleb Hill [facility] 08/17/2024 9:26:47 AM CDT Elsa Hall MD CV ECHO PROCEDURES Ronda l Result * Electrocardiogram Report (07/13/2024 2:07 PM CDT) Elsa Hall MD ECG ORDERABLES Final R esult * MCT Mobile Cardiac Telemetry Event Monitor (07/13/2024 9:45 AM CDT) Anatomical Region Laterality Modality Electrocardiogra phy Narrative 07/24/2024 12:40 PM CDT AMBULATORY SYSTEM ARCHIVE ANALYST REPORT Patient Name: Jessica Escalante Date of [...] fibrillation. No significant pauses above 3 seconds. [place] of PVCs less than 1%. No evidence [...] was used to complete this document, therefore, patent litigation associate variances may occur. Caleb Hill MD, [facility] 07/24/24 Procedure Note Caleb Hill MD - 07/24/2024 AMBULATORY SYSTEM ARCHIVE ANALYST REPORT Patient Name: Jessica Escalante Date of [...] atrial fibrillation. No significant pauses above 3 seconds.[place] of PVCs less than 1%. No evidence [...] software was used to complete this document, therefore,patent litigation associate variances may occur. Caleb Hill MD, [facility] 07/24/[address] [facility] Gonzalo Hall MD CV CARDIAC SERVICES PRO CEDURES Final Result * (ABNORMAL) Lipid panel (07/13/2024 9:32 AM CDT) SCRIBED Cholesterol, Total 117 0 - 200 EXTERNAL LAB SCRIBED HDL 43 40 - 120 EXTERNAL LAB SCRIBED LDL 50 0 - 100 EXTERNAL LAB SCRIBED Triglycerides 159(A) 0 - 100 EXTERNAL LAB Blood us Historical Provider LAB BLOOD ORDERABLES Ronda askew Result EXTERNAL LAB from Last 3 Months Insurance [employer] [place] PPO [place] Care Teams Pharmacist In Charge Owner Relationship Specialty Start Date End Date Brittny Khan NP [address] [place] [address] PCP - General Nurse Practitioner 07/13/24
== END 2024-08-18 10:19 | disposition home or self-care (01) ==
PROVIDERS: PCP Nurse Practitioner Family; Visit Provider Nurse Practitioner Family
DX: Z12.31 Encounter for screening mammogram for malignant neoplasm of breast (principal)
CPT/HCPCS: 77063; 77067

== ENCOUNTER 2024-08-27 01:18 | Day surgery (SDC) | payer BC, SELFPAY ==
[2024-08-26 13:51] VITALS: BMI 31.8
[2024-08-27] VITALS (8 sets, daily range): BP systolic 98–111; BP diastolic 69–92; PULSE 60–96; RESP 12–18; TEMP 36.8; O2SAT 92–97
--- OUTSIDE RECORDS SUMMARY | 2024-08-27 01:20 | XMS_ITS | Continuity of Care Document ---
Author Organization [facility] Address [id number] [place] [address] Dr [address] [place] [phone] Phone Care Team Providers Care Label Press Operator Name Role Phone Anne-Marie Morales Unavailable Unavailable Procedures Procedure Date Post-op Follow-up Visit After Cataract Laser Surgery Eye Exam Established Pt Eye Exam Established Pt Ophthalmoscopy, Subsequent Post-op Follow-up Visit Post-op Follow-up Visit Post-op Follow-up Visit Post-op Follow-up Visit Remove Cataract, Insert Lens Eye Exam Established Pt IOLMaster Eye Exam Established Pt Ophthalmoscopy, Subsequent Optic Nerve Topography Office/outpatient Visit, Est Eye Exam Established Pt Eye Exam Established Pt Ophthalmoscopy, Subsequent Eye Exam Established Pt Ophthalmoscopy, Subsequent Eye Exam Established Pt Ophthalmoscopy, Subsequent Eye Exam Established Pt Ophthalmoscopy, Subsequent Eye Exam Established Pt Ophthalmoscopy, Subsequent Post-op Follow-up Visit Ophthalmoscopy, Subsequent Eye Exam, New Patient Advance Directives Directive Yes / No Effective Date File Name No Information Encounters Encounter Description Practice Location Reason(s) For Visit Diagnoses Date Provider Providers Copied on Encounter [facility], [address], [place], [place], [address], [place] tel:[phone] [facility]3] No Information Nov-0 2-201 0 Morales Anne-Marie. [address] , [address], [place], [address], [place]. tel:[phone] [facility], [address], [place], [place], [address], [place] tel:[phone] Nov [facility] No Information Oct-0 6-201 0 Morales Anne-Marie. [address] , [address], [place], [address], [place]. tel:[phone] [facility], [address] [place] [address] [address], [place], [place], [address], [place] tel:[phone] [facility]3] No Information Sep-2 8-201 0 Morales Anne-Marie. [address], [place], [address], [place]. tel:[phone] [facility], [address] [place] [address] [address], [place], [place], [address], [place] tel:[phone] [facility]3] No Information Ruben-2 8-201 0 Vincenzo Maria. [address] [place], [address], [place]. tel:[phone] Referring Provider: Crow Wolfe, [address] [place], [address]. tel:[phone] [facility], [address] [place] [address] [address], [place], [place], [address], [place] tel:[phone] [facility]3] No Information Ruben-0 1-201 0 Morales Anne-Marie. [address], [place], [address], [place]. tel:[phone] [facility], [address] [place] [address] [address], [place], [place], [address], [place] tel:[phone] [facility]3] No Information May-2 5-201 0 Morales Anne-Marie. [address], [place], [place], [facility][note 2], [place]. tel:[phone] [facility], [address], [place], [place], [address], [place] tel:[phone] [facility]3] No Information May-0 4-201 0 Morales Anne-Marie. [address], [place], [place], [facility][note 2], [place]. tel:[phone] [facility], [address], [place], [place], [address], tel:[phone] [facility]3] No Information Apr-2 9-201 0 Villarreal OD Rashid. [address], [place], [place], [facility][note 2], [place]. tel:[phone] [facility], [address], [place], [place], [address], [place] tel:[phone] [facility] No Information Apr-2 8-201 0 Morales Anne-Marie. [address], [place], [place], [facility][note 2], [place]. tel:[phone] [facility], [address], [place], [place], [address], [place] tel:[phone] [facility]3] No Information Apr-2 0-201 0 Morales Anne-Marie. [address], [place], [place], [facility][note 2], [place]. tel:[phone] Referring Provider: Crow Wolfe, [address], [place], [facility][note 2]. tel:[phone] [facility], [address], [place], [place], [address], [place] tel:[phone] [facility] No Information Mar-2 2-201 0 Vincenzo Maria. [address] [place], [address], [place]. tel:[phone] Referring Provider: Rashid Villarreal OD A, [address], [place], [place], [facility][note 2]. tel:[phone] [facility], [address], [place], [place], [address], [place] tel:[phone] [facility] No Information 5-201 0 Villarreal OD Rashid. [address] , [address], [place], [place], [facility][note 2], [place]. tel:[phone] [facility], [address], [place], [place], [address], [place] tel:[phone] [facility] No Information Thom-0 8-201 0 Villarreal OD Rashid. [address] , [address], [place], [address], [place]. tel:[phone] [facility], [address], [place], [place], [address], [place] tel:[phone] [facility] No Information Aug-2 0-200 9 Vincenzo Maria. [address] [place], [address], [place]. tel:[phone] [facility], [address], [place], [place], [address], [place] tel:[phone] [facility] No Information Ruben-2 5-200 9 Vincenzo Maria. [address] [place], [address], [place]. tel:[phone] Referring Provider: Crow Wolfe, [address] [place], [address]. tel:[phone] [facility], [address], [place], [place], [address], [place] tel:[phone] [facility] No Information Ruben-0 4-200 9 Vincenzo Maria. [address] [place], [address], [place]. tel:[phone] Referring Provider: Crow Wolfe, [address] [place], [address]. tel:[phone] [facility], [address], [place], [place], [address], [place] tel:[phone] [facility] No Information May-2 1-200 9 Vincenzo Maria. [address] [place], [address], [place]. tel:[phone] Referring Provider: Crow Wolfe, [address] [place], [address]. tel:[phone] [facility], [address], [place], [place], [address], [place] tel:[phone] [facility] No Information May-0 7-200 9 Vincenzo Maria. [address] [place], [address], [place]. tel:[phone] [facility], [address], [place], [place], [address], [place] tel:[phone] [facility] No Information Apr-3 0-200 9 Vincenzo Maria. [address] [place], [address], [place]. tel:[phone] [facility], [address], [place], [place], [address], [place] tel:[phone] [facility] No Information Apr-2 8-200 9 Carmen Xie. [address], [place], [address], [place]. tel:[phone] Family History Family Member Type Diagnosis Age At Onset No Information Payers Payer name Insurance type Covered democrat ID Authoriza tion(s) No Information Social History Type Description Quantity Date Captured Comments Sex Female Smoking Status No Information Chief Complaint And Reason For Visit No Information Reason For Referral Reason For Referral No Information History Of Present Illness Encounter Date Complaint History Of Prese nt Illness No Information Functional Status Date Functional Assessmen t No Information Instructions Date Instruction Additional Infor mation No Information Assessments Type Assessment Date No Information Patient Care Teams Name Effective Dates (start - stop) Status Members No Information
--- OUTSIDE RECORDS SUMMARY | 2024-08-27 01:20 | XMS_ITS | Clinical Summary ---
Author Organization [facility] Address [address] [place] [address] Care Team Providers Care Apple Press Operator Name Role Phone Gladys Nash MD Primary Care Provider [phone] Source Comments [facility],non-owned Affiliates and Associated Physician Practices is amultiple site organization consisting of ambulatory clinics and hospital sitesin [place], [place], [place] and [place]. This disclosure is being madepursuant to the Care Everywhere program and may not contain all information available regarding this patient. Last updated 18.[facility] Allergies No known active allergies Medications * [...] nasal sprayIndications:Acute maxillary sinusitis, recurrence not specified,Cough [place] 2 sprays into each nostril once daily [...] patient's age to complete [place] [address] [facility] Care Teams Apple Press Operator Relationship Specialty Start Date End Date Gladys Nash MD [address] [place] [id number] PCP - General Family Medicine 07/02/17
--- OUTSIDE RECORDS SUMMARY | 2024-08-27 01:20 | XMS_ITS | Clinical Summary ---
Author Organization [facility] [address] Address [address] [place] [address] [address] [place] [address] Care Team Providers Care Cost Accountant Name Role Phone Brittny Khan NP Primary Care Provider [phone] Allergies No known active allergies Medications atorvastatin (LIPITOR) 10 mg tablet Take 1 tablet (10 mg total) by mouth daily Active folic acid 0.8 mg capsule Take 0.8 mg by mouth daily 4 Active lisinopriL (PRINIVIL,ZESTRI L) 20 mg tablet Take 1 tablet (20 mg total) by mouth daily Active metoprolol XL (TOPROL-XL) 100 mg 24 hr tabletIndication s:Atrial fibrillation, unspecified type (HCC) Take 1 tablet (100 mg total) by mouth daily 30 tablet 11 5 07/31/19 26 Active Pradaxa 150 mg capsule Take 1 capsule (150 mg total) by mouth 2 (two) times a day 60 capsule 11 5 Active empagliflozin (JARDIANCE) 10 mg tablet Take 1 tablet (10 mg total) by mouth daily 30 tablet 11 5 Active dabigatran (PRADAXA) 150 mg capsule Take 1 capsule (150 mg total) by mouth 2 (two) times a day 180 capsule 2 5 Active bisoprolol-hydro CHLOROthiazide (ZIAC) 5-6.25 mg per tablet Take 1 tablet by mouth daily 07/31/19 25 Discontinu ed(Alterna te therapy) Pradaxa 150 mg capsule Take 1 capsule (150 mg total) by mouth 2 (two) times a day 03/06/08/19/19 Discontinu ed(Reorder ) Active Problems Problem Noted Date Diagnosed Date Atrial fibrillation 07/13/2024 Encounters Date Type Department Care Team Description 08/24/2024 7:45 AM CDT Ancillary Procedure [facility] [address] [place] [address] [place] [phone] Atrial fibrillation, unspecified type (HCC) 08/20/2024 Orders Only [facility] [address] [place] [address] [place] [phone] Elsa Hall MD 08/18/2024 Telephone [facility] [address] [place] [address] [place] [phone] Elsa Hall MD 08/17/2024 8:15 AM CDT Ancillary Procedure [facility] [address] [place] [address] [place] [phone] Atrial fibrillation, unspecified type (HCC) 08/10/2024 Telephone [facility] [address] [place] [address] [place] [phone] Elsa Hall MD 07/31/2024 Telephone [facility] [address] [place] [address] [place] [phone] Elsa Hall MD 07/29/2024 Results Follow-Up [facility] at [address] [place] [phone] Elsa Hall MD Longstanding persistent atrial fibrillation (HCC) (Primary Dx); Atrial fibrillation, unspecified type (HCC) 07/14/2024 Telephone [facility] [address] [place] [address] [place] [phone] Elsa Hall MD 07/13/2024 9:45 AM CDT Ancillary Procedure [facility] [address] [place] [address] [address], [place] [phone] Atrial fibrillation, unspecified type (HCC) 07/13/2024 9:15 AM CDT Office Visit [facility] [address] [facility] [address] [facility] [place] [phone] Elsa Hall MD Atrial fibrillation, unspecified type (HCC) (Primary Dx); Primary hypertension; Mixed hyperlipidemia 07/13/2024 Telephone [facility] [address] [facility] [address] [facility] [place] [phone] Elsa Hall MD serious ECG from Last 3 Months Social History Tobacco Use Types Packs/Day Years Used Date Smoking Tobacco: Never Tobacco Cessation:Counseling Given: Not Answered Comments Unknown Sex and Gender Information Value Date Recorded Sex Assigned at Not on file Legal Sex Female 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 Gender Identity Female 07/06/2024 9:06 AM CDT [...] Procedure Name Priority Date/Time Associated Diagnosis Comments NM MPI SPECT (REST AND/OR STRESS) MULTIPLE STUDIES Schedule Routine, Read Routine (OP Routine) 08/24/2024 9:10 AM CDT Atrial fibrillation, unspecified type (HCC) TRANSTHORACIC ECHO (TTE) COMPLETE W DOPPLER/CF WO CONTRAST Routine 08/17/2024 8:47 AM CDT Atrial fibrillation, unspecified type (HCC) ELECTROCARDIOGRAM REPORT Routine 07/13/2024 2:07 PM CDT Atrial fibrillation, unspecified type (HCC) Primary hypertension MCT - MOBILE CARDIAC TELEMETRY EVENT MONITOR Routine 07/13/2024 9:45 AM CDT Atrial fibrillation, unspecified type (HCC) LIPID PANEL Routine 07/13/2024 9:32 AM CDT from Last 3 Months Results * NM MPI SPECT (Rest and/or Stress) Multiple Studies (08/24/2024 9:10 AM CDT) Anatomical Region Laterality Modality Body N/A Nuclear Medicine 08/24/2024 8:29 AM CDT Narrative 08/24/2024 2:13 PM CDT [facility] [address] [facility] [address], [place] [address] [address] [facility] [address], [place] [address] P:[phone] P:[phone] MPI Imaging Report Patient Name: JESSICA ESCALANTE : 1960 Study Date: 08/24/2024 8:29:14 AM Gender: F Tech: SAVANNAH STEVENS [facility] Provider: ELSA HALL Height(Cm): 157.5 BSA: Weight(Kg): 79.8 BMI: 32.17 Order Provider: ELSA HALL PHYSICIAN: Referring Physician: Brittny Khan NP. HCG Physician: Elsa Hall M.D., FJesus ManuelA.CJesus ManuelC. Interpreting Physician: Dony Call M.D. Stress Supervision: Caleb Hill M.D., OwenCPillo. PROCEDURES: Pharmacologic SPECT Report: Myocardial perfusion imaging with Tc99M Sestamibi SPECT at rest and stress post regadenoson (Lexiscan) infusion. INDICATIONS: Chest Pain, Hypertension, High Cholesterol, FOFANA, and I48.91 Unspecified atrial fibrillation. FINDINGS: Procedural Findings: One day rest/stress was used. Tc99m Sestamibi injected IV at rest was 10.5 millicuries 32.7 millicuries of Tc99M Sestamibi injected IV during Lexiscan stress Lexiscan 0.4mg administered IV over 10 seconds. Pharmacologic stress related symptoms and/or side effects during infusion include chest tightness 3/10 . Symptoms were resolved with completion of Lexiscan protocol. Baseline heart rate was 89 BPM Maximum Heart Rate Achieved was: 139 BPM Baseline blood pressure was 126/82 mmHg Post Stress Blood Pressure was 128/74 mmHg Termination: Protocol complete. Resting ECG: Nonspecific ST-T abnormalities. Atrial fibrillation. Post ECG: Findings do not meet strict criteria for ischemia. Arrhythmia: Atrial fibrillation at baseline. Perfusion Findings: Normal perfusion imaging. No definite fixed or reversible defects. Technical quality of study is excellent. Prone imaging was performed. Left ventricle cavity size at rest is normal. Left ventricle cavity size with stress is unchanged. A TID of 0.76 was automatically calculated. LV Function: Global left ventricular function is low normal. Left ventricular ejection fraction is 51 %. CONCLUSIONS: Global left ventricular function is low normal. Left ventricular ejection fraction is 51 %. Myocardial perfusion imaging is normal. Anterior breast attenuation artifact is noted which resolves with prone imaging. Negative EKG portion of stress test. Electronically Signed By: Andre Call MD 08/24/2024 1:12:44 PM CDT Electronically Signed By: Dr. Caleb Hill [facility] 08/24/2024 2:12:58 PM CDT Procedure Note Caleb Hill MD - 08/24/2024 [facility] [address] [facility] [address], [place] [address] [address] [facility] [address], [place] [address] P:[phone] P:[phone] MPI Imaging Report Patient Name: JESSICA ESCALANTE : 1960 Study Date: 08/24/2024 8:29:14 AM Gender: F [facility] Provider: ELSA HALL Height(Cm): 157.5 BSA: Weight(Kg): 79.8 BMI: 32.17 Order Provider: ELSA HALL PHYSICIAN: Referring Physician: Brittny Khan NP. HCG Physician: Elsa Hall M.D., F.A.C.C. Interpreting Physician: Dony Call M.D. Stress Supervision: Caleb Hill M.D., F.A.C.C. PROCEDURES: Pharmacologic SPECT Report: Myocardial perfusion imaging with Tc99M Sestamibi SPECT at rest and stresspost regadenoson (Lexiscan) infusion. INDICATIONS: Chest Pain, Hypertension, High Cholesterol, FOFANA, and I48.91 Unspecifiedatrial fibrillation. FINDINGS: Procedural Findings: One day rest/stress was used. Tc99m Sestamibi injected IV at rest was 10.5 millicuries 32.7 millicuries of Tc99M Sestamibi injected IV during Lexiscan stress Lexiscan 0.4mg administered IV over 10 seconds. Pharmacologic stress related symptoms and/or side effects duringinfusion include chest tightness 3/10 . Symptoms were resolved with completion of Lexiscan protocol. Baseline heart rate was 89 BPM Maximum Heart Rate Achieved was: 139 BPM Baseline blood pressure was 126/82 mmHg Post Stress Blood Pressure was 128/74 mmHg Termination: Protocol complete. Resting ECG: Nonspecific ST-T abnormalities. Atrial fibrillation. Post ECG: Findings do not meet strict criteria for ischemia. Arrhythmia: Atrial fibrillation at baseline. Perfusion Findings: Normal perfusion imaging. No definite fixed or reversible defects.Technical quality of study is excellent. Prone imaging was performed. Left ventricle cavitysize at rest is normal. Left ventricle cavity size with stress is unchanged. A TID of 0.76was automatically calculated. LV Function: Global left ventricular function is low normal. Left ventricular ejectionfraction is 51 %. CONCLUSIONS: Global left ventricular function is low normal. Left ventricular ejectionfraction is 51 %. Myocardial perfusion imaging is normal. Anterior breast attenuationartifact is noted which resolves with prone imaging. Negative EKG portion of stress test. Electronically Signed By: Andre Call MD 08/24/2024 1:12:44 PM CDT Electronically Signed By: Dr. Caleb Hill [facility] 08/24/2024 2:12:58 PM CDT [facility] Gonzalo Hall MD IMG NM PROCEDURES Final Result * TRANSTHORACIC ECHO (TTE) COMPLETE W DOPPLER/CF WO CONTRAST (08/17/2024 8:47 AM CDT) LV EF 35 % CONS SCIMAGE Anatomical Region Laterality Modality Ultrasound 08/17/2024 8:28 AM CDT Narrative 08/17/2024 9:27 AM CDT [facility] [address], [address], [place] [address] P:[phone] P:[phone] Echocardiographic Report Patient Name: JESSICA ESCALANTE : 1960 Study Date: 08/17/2024 8:28:41 AM Gender: F Tech: Location: [facility] Provider: ELSA HALL Height(Cm): 157 BSA: [...] FINDINGS: Interpretation Site: Exam was interpreted at [facility]. Left Ventricle: Normal left ventricular size. Normal [...] fibrillation. Electronically Signed By: Dr. Caleb Hill [facility] 08/17/2024 9:26:47 AM CDT Procedure Note Caleb Hill MD - 08/17/2024 [facility] [address], [address], [place] [address] P:[phone] P:[phone] Echocardiographic Report Patient Name: JESSICA ESCALANTE : 1960 Study Date: 08/17/2024 8:28:41 AM Gender: F Tech: Location: [facility] Provider: ELSA HALL Height(Cm): 157 BSA: [...] FINDINGS: Interpretation Site: Exam was interpreted at [facility]. Left Ventricle: Normal left ventricular size. Normal [...] fibrillation. Electronically Signed By: Dr. Caleb Hill [facility] 08/17/2024 9:26:47 AM CDT Elsa Hall MD CV ECHO PROCEDURES Ronda l Result * Electrocardiogram Report (07/13/2024 2:07 PM CDT) Elsa Hall MD ECG ORDERABLES Final R esult * MCT Mobile Cardiac Telemetry Event Monitor (07/13/2024 9:45 AM CDT) Anatomical Region Laterality Modality Electrocardiogra phy Narrative 07/24/2024 12:40 PM CDT AMBULATORY PARKING GARAGE MANAGER REPORT Patient Name: Jessica Escalante Date of [...] fibrillation. No significant pauses above 3 seconds. [place] of PVCs less than 1%. No evidence [...] was used to complete this document, therefore, security messenger variances may occur. Caleb Hill MD, [facility] 07/24/24 Procedure Note Caleb Hill MD - 07/24/2024 AMBULATORY PARKING GARAGE MANAGER REPORT Patient Name: Jessica Escalante Date of [...] atrial fibrillation. No significant pauses above 3 seconds.[place] of PVCs less than 1%. No evidence [...] software was used to complete this document, therefore,security messenger variances may occur. Caleb Hill MD, [facility] 07/24/24 [facility] Gonzalo Hall MD CV CARDIAC SERVICES PRO CEDURES Final Result * (ABNORMAL) Lipid panel (07/13/2024 9:32 AM CDT) SCRIBED Cholesterol, Total 117 0 - 200 EXTERNAL LAB SCRIBED HDL 43 40 - 120 EXTERNAL LAB SCRIBED LDL 50 0 - 100 EXTERNAL LAB SCRIBED Triglycerides 159(A) 0 - 100 EXTERNAL LAB Blood Historical Provider LAB BLOOD ORDERABLES Ronda l Result EXTERNAL LAB from Last 3 Months Insurance [place] Care Teams Cost Accountant Relationship Specialty Start Date End Date Brittny Khan NP [address] [place] [address] PCP - General Nurse Practitioner 07/13/24
--- OUTSIDE RECORDS SUMMARY | 2024-08-27 01:20 | XMS_ITS | Referral Summary ---
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 Cardiology [address] [place] [address] [place] [phone] Atrial fibrillation, unspecified type (HCC) 08/20/[address] [facility] Cardiology [address] [place] [address] [place] [address] [phone] Elsa Hall MD 08/18/[address] [facility] Cardiology [address] [place] [address] [place] [address] [phone] Elsa Hall MD 08/17/2024 8:15 AM CDT Ancillary Procedure [facility] Cardiology [address] [place] [address] [place] [address] [phone] Atrial fibrillation, unspecified type (HCC) 08/10/[address] [facility] Cardiology [address] [place] [address] [place] [phone] Elsa Hall MD 07/31/[address] [facility] Cardiology [address] [place] [address] [place] [phone] Elsa Hall MD 07/29/2024 Results Follow-Up [facility] Cardiology at [address] [place] [phone] Elsa Hall MD Longstanding persistent atrial fibrillation (HCC) (Primary Dx); Atrial fibrillation, unspecified type (HCC) 07/14/2024 Telephone [facility] Cardiology [address] [place] [phone] Elsa Hall MD 07/13/2024 Telephone [facility] Cardiology [address] [place] [address] [place] [phone] Elsa Hall MD serious ECG 07/13/2024 9:45 AM CDT Ancillary Procedure [facility] Cardiology [address] [place] [address] [place] [phone] Atrial fibrillation, unspecified type (HCC) 07/13/2024 9:15 AM CDT Office Visit [facility] Cardiology [address] [place] [address] [place] [phone] Elsa Hall MD Atrial fibrillation, unspecified [...] mg total) by mouth daily 30 tablet 5 07/31/19 26 Active Pradaxa 150 mg capsule Take 1 capsule (150 mg total) by mouth 2 (two) times a day 60 capsule 5 Active empagliflozin (JARDIANCE) 10 mg tablet Take 1 tablet (10 mg total) by mouth daily 30 tablet 5 Active dabigatran (PRADAXA) 150 mg capsule Take 1 capsule (150 mg total) by mouth 2 (two) times a day 180 capsule 2 Active bisoprolol-hydro CHLOROthiazide (ZIAC) 5-6.25 mg per tablet Take 1 tablet by mouth daily 07/31/19 Discontinu ed(Alterna te therapy) Pradaxa 150 mg capsule Take 1 capsule (150 mg total) by mouth 2 (two) times a day 5 08/19/19 Discontinu ed(Reorder ) Active Problems Problem Noted Date Diagnosed Date Atrial fibrillation 07/13/2024 Social History Tobacco Use Types Packs/Day Years Used Date Smoking Tobacco: Never Tobacco Cessation:Counseling Given: Not Answered Comments Unknown Sex and Gender Information Value Date Recorded Sex Assigned at Not on file Legal Sex 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 Cardiology [address] [facility] [address] [address] [address] [facility] [address], [place] [address] P:[phone] P:[phone] MPI Imaging Report Patient Name: JESSICA ESCALANTE : 1960 Study Date: 08/24/2024 8:29:14 AM Gender: F Tech: [facility] Location: [facility] Provider: ELSA HALL Height(Cm): 157.5 BSA: [...] CDT Electronically Signed By: Dr. Caleb Hill [facility] 08/24/2024 2:12:58 PM CDT Procedure Note Caleb Hill MD - 08/24/2024 [facility] Cardiology [address] [facility] [address], [place] [address] [address] [facility] [address], [place] [address] P:[phone] P:[phone] MPI Imaging Report Patient Name: JESSICA ESCALANTE : 1960 Study Date: 08/24/2024 8:29:14 AM Gender: F Tech: HILDA [facility] Location: [facility] Provider: ELSA HALL Height(Cm): 157.5 BSA: Weight(Kg): 79.8 BMI: 32.17 Order Provider: ELSA HALL PHYSICIAN: Referring Physician: Brittny Khan NP. HCG Physician: Elsa Hall M.D., OwenCMichael Interpreting Physician: Dony Call M.D. Stress Supervision: Caleb Hill M.D., Boaz.CMichael PROCEDURES: Pharmacologic SPECT Report: Myocardial perfusion imaging [...] CDT Electronically Signed By: Dr. Caleb Hill [facility] 08/24/2024 2:12:58 PM CDT [facility] Gonzalo Hall MD IMG NM PROCEDURES Final Result * TRANSTHORACIC ECHO (TTE) COMPLETE W DOPPLER/CF WO CONTRAST (08/17/2024 8:47 AM CDT) LV EF 35 % CONS SCIMAGE Anatomical Region Laterality Modality Ultrasound 08/17/2024 8:28 AM CDT Narrative 08/17/2024 9:[address] [facility] Cardiology [address] [facility], [address], [place] [address] P:[phone] P:[phone] Echocardiographic Report Patient Name: JESSICA ESCALANTE : 1960 Study Date: 08/17/2024 8:28:41 AM Gender: F Tech: Location: [place] Ref Provider: ELSA HALL Height(Cm): 157 BSA: [...] Interpretation Site: Exam was interpreted at [facility]. Left Ventricle: Normal left ventricular size. Normal [...] fibrillation. Electronically Signed By: Dr. Caleb Hill [facility] 08/17/2024 9:26:47 AM CDT Procedure Note Caleb Hill MD - 08/17/2024 [facility] Cardiology [address] [facility], [address], [place] [address] P:[phone] P:[phone] Echocardiographic Report Patient Name: JESSICA ESCALANTE : 1960 Study Date: 08/17/2024 8:28:41 AM Gender: F Tech: Location: [place] Ref Provider: ELSA HALL Height(Cm): 157 BSA: [...] Interpretation Site: Exam was interpreted at [facility]. Left Ventricle: Normal left ventricular size. Normal [...] fibrillation. Electronically Signed By: Dr. Caleb Hill [facility] 08/17/2024 9:26:47 AM CDT [facility] Gonzalo Hall MD CV ECHO PROCEDURES Ronda jamilah Result * Electrocardiogram Report (07/13/2024 2:07 PM CDT) us [facility] Gonzalo Hall MD ECG ORDERABLES Final R esult * MCT Mobile Cardiac Telemetry Event Monitor (07/13/2024 9:45 AM CDT) Anatomical Region Laterality Modality Electrocardiogra phy Narrative 07/24/2024 12:40 PM CDT AMBULATORY YARD INSPECTOR REPORT Patient Name: Jessica Escalante Date of [...] fibrillation. No significant pauses above 3 seconds. Fitzgerald of PVCs less than 1%. No evidence [...] was used to complete this document, therefore, embossing tool setter variances may occur. Caleb Hill MD, [facility] 07/24/24 Procedure Note Caleb Hill MD - 07/24/2024 AMBULATORY YARD INSPECTOR REPORT Patient Name: Jessica Escalante Date of [...] atrial fibrillation. No significant pauses above 3 seconds.Fitzgerald of PVCs less than 1%. No evidence [...] software was used to complete this document, therefore,embossing tool setter variances may occur. Caleb Hill MD, [facility] 07/24/[address] [facility] Gonzalo [...] BL CHOICE PRF PPO [place] Care Teams Metal Organ Pipe Maker Relationship Specialty Start Date End Date Brittny Khan NP [address] [place] [address] PCP - General Nurse Practitioner 07/13/24
--- NOTE | 2024-08-27 08:30 | ECG_ITS ---
Test Date: 2024-08-27 09:45:29 Measurements Intervals [place] Rate: 64 P: 38 ND: 187 QRS: 9 QRSD: 91 T: 71 QT: 402 QTc: 415 Interpretive Statements SINUS RHYTHM LOW QRS VOLTAGE IN PRECORDIAL LEADS [QRS DEFLECTION < 1.0 mV IN CHEST LEADS] NONSPECIFIC T-WAVE ABNORMALITY Compared to ECG 08/27/2024 09:03:06 Atrial fibrillation no longer present Electronically Signed On 08-27-2024 10:13:38 CDT by Valeriano Hall M.D.
[2024-08-27 09:25] LABS: Anion Gap 10 mmol/L (4-12); Blood Urea Nitrogen 13 mg/dL (7-17); Carbon Dioxide 23 mmol/L (22-30); Chloride 108 mmol/L (98-107); Estimated CRCL calculation 87 ml/min; Estimated Glomerular Filt Rate > 60; Glucose 113 mg/dL (65-110); Potassium 4.2 mmol/L (3.4-5.0); Sodium 141 mmol/L (137-145)
[2024-08-27] MEDS: PROPOFOL IV EMULSION 200 MG/20 ML VIAL 40 MG IV PUSH (09:40)
--- NOTE | 2024-08-27 09:48 | WPDHPUPDATE1 ---
History and Physical Update Update Date/Time: 08/27/24 09:48 History and Physical has been reviewed, including an updated exam of the patient. There are NO changes in the patient's condition. Risks, benefits, and alternatives have been discussed and questions answered. Patient agrees to proceed with procedure.
--- NOTE | 2024-08-27 09:48 | WPDMODSED ---
Moderate Sedation Note-Pt Data Patient Data Diagnosis: Atrial fibrillation Present Complaint: Atrial fibrillation Procedure to be performed/Plan: Synchronized electrical cardioversion Allergies Allergy/AdvReac Type Severity Reaction Status Date / Time No Known Allergies Allergy Unknown Verified 08/26/24 14:06 Home Medications ?Medication ?Instructions ?Recorded ?Confirmed ?Type atorvastatin 20 mg tablet See Rx Instructions .Route 06/24/24 08/27/24 Rx .COMPLEX #90 tabs dabigatran etexilate 150 mg 150 mg PO BID #60 caps 06/24/24 08/27/24 Rx capsule (Pradaxa) lisinopril 20 mg tablet 20 mg PO DAILY #90 tabs 06/24/24 08/27/24 Rx empagliflozin 10 mg tablet 10 mg PO DAILY 08/26/24 08/27/24 History (Jardiance) metoprolol succinate 100 mg 100 mg PO DAILY 08/26/24 08/27/24 History tablet,extended release 24 hr Current Medications: Active Medications Sodium Chloride (Normal Saline Iv) 1,000 mls @ 30 mls/hr IV CONT .Q24H CORRINE Sedation/Anesthesia: No previous sedation/anesthesia problems (including family history). 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 Detached retina, right (~2018) Detached retina, left (~2008) Social History Social History Smoking status: Never smoker Second hand tobacco smoke exposure: No Alcohol intake: current Drinks per week: 3 Substance use: never Substance use type: does not use Do You Feel Safe in your Home?: Yes Lack of Transportation: No Lack of Food: Sometimes True Current Housing: I Have Housing Concerned About Future Housing: No Difficulty Paying Gas/Electric Bills: No Difficulty Paying for Meds: No Currently Unemployed: No Education: Bachelor's Degree Difficulty w/ Childcare or Family Care: No Living arrangements: with family Occupation/Education: occupation Spiritual care concerns: No Agree to blood products: Yes Mod Sed Physical Exam Physical Exam Pre Procedural Exam: Normal: Appearance, Lungs, Neuro Exam, Extremities and Skin and Variation: Heart Rate (Rate controlled atrial fibrillation ) and Heart Rhythm (Rate controlled atrial fibrillation ) Hours since solid foods: 12 Hours since liquid intake: 8 Mallampati Classification: class III Internal Medicine - PN: Obj Da Vital Signs Vital Signs: Vital Signs - 24 hr 08/27/24 09:05 Temperature 36.8 C Pulse Rate 96 Respiratory Rate 12 Blood Pressure 111/82 Pulse Oximetry 96 Oxygen Delivery Room Air Meds/Results Medications: Active Medications Generic Name Dose Route Start Last Admin Trade Name Freq PRN Reason Stop Dose Admin Sodium Chloride 1,000 mls @ 30 mls/hr 08/27/24 08:30 Normal Saline Iv IV CONT .Q24H CORRINE Labs 08/27/24 09:11 Labs: Laboratory Results - last 24 hr 08/27/24 09:11 Sodium 141 Potassium 4.2 Chloride 108 H Carbon Dioxide 23 Anion Gap 10 BUN 13 Creatinine 0.55 L Estim Creat Clear Calc 87 Estimated GFR > 60 Glucose 113 H Calcium 9.0 Magnesium 2.0 ASA Classification/Sedation ASA Classification/Sedation ASA Class: II Emergent: No Risks: Risks, benefits and alternatives explained and patient/family accepted plan for sedation. Patient re-evaluated immediately prior to sedation.
--- NOTE | 2024-08-27 09:49 | P.PCNCVR_ITS ---
Cardioversion Cardioversion Date of procedure: 08/27/24 Procedure: Synchronized electrical cardioversion Pre-op diagnosis: Atrial fibrillation Post-op diagnosis: Other (Successful cardioversion to sinus rhythm. ) Indications: Atrial fibrillation Description of procedure: Written informed consent obtained. Defibrillator pads placed in an anterior- posterior position. Time out performed by ABHI Shaffer. Total of Propofol 40mg IV was administered by me. Once patient was adequately sedated, synchronized electrical cardioversion was performed with 1 shock at 250 joules, which successfully restored sinus rhythm. Patient's hemodynamics and respiratory status was monitored throughout the procedure. No periprocedural complications. Sedation: Total of Propofol 40mg IV was administered by me. Findings: Successful synchronized electrical cardioversion to sinus rhythm with 1 shock at 250 joules. Conclusion: Successful synchronized electrical cardioversion to sinus rhythm with 1 shock at 250 joules.
--- NOTE | 2024-08-27 10:00 | ECG_ITS ---
Test Date: 2024-08-27 09:03:06 Measurements Intervals [place] Rate: 95 P: 0 MI: 0 QRS: 14 QRSD: 91 T: 150 QT: 331 QTc: 417 Interpretive Statements ATRIAL FIBRILLATION LOW QRS VOLTAGE IN PRECORDIAL LEADS [QRS DEFLECTION < 1.0 mV IN CHEST LEADS] NONSPECIFIC T-WAVE ABNORMALITY No previous ECG available for comparison Electronically Signed On 08-27-2024 10:11:13 CDT by Valeriano Hall M.D.
== END 2024-08-27 11:06 | disposition home or self-care (01) ==
PROVIDERS: PCP Nurse Practitioner Family; Visit Provider Internal Medicine
PROC: 5A2204Z Restoration of Cardiac Rhythm, Single (ICD-10-PCS; principal; 2024-08-27 10:00)
DX: I48.91 Unspecified atrial fibrillation (principal); R94.31 Abnormal electrocardiogram [ECG] [EKG]; M06.00 Rheumatoid arthritis without rheumatoid factor, unspecified site; M35.89 Other specified systemic involvement of connective tissue; Z79.84 Long term (current) use of oral hypoglycemic drugs
CPT/HCPCS: 36415; 80048; 83735; 92960; J7040